=== PATIENT | female | born 1975 | race Caucasian/White ===

== ENCOUNTER → 2020-01-25 08:14 | Outpatient (CLI) | payer OTHER, SELFPAY ==
--- NOTE | ~2020-01-25 | MR_ITS ---
EXAMINATION: MR cervical spine wo/w con EXAM DATE: 01/25/2020 10:37 INDICATION: Multiple sclerosis. TECHNIQUE: Multi-sequential, multiplanar MR images of the cervical spine were obtained without contra st. Axial T2, axial T2 MERGE sequence. Sagittal T1, T2, T2 fat saturation images also obtained. Axi al T1 weighted sequence. Patient was then injected with 18 mL Multihance intravenous contrast and re imaged. Postcontrast axial and sagittal T1-weighted fat saturation sequences were obtained. Compared to exam from 04/15/2007 FINDINGS: Scattered small vague regions of increased cervical spinal cord T2 signal again noted, the largest 2 demonstrating slight volume loss at these locations. This is consistent with sequela from prior episodes of multiple sclerosis. No enhancing lesions, no evidence of active disease. There is m ild cervical arthropathy. No central canal or neural foraminal stenosis. Some artifact from dental ureña rdware. There are no suspicious marrow signal abnormalities. Paraspinal soft tissue is unremarkable. There is no significant interval change. IMPRESSION: 1. Scattered cervical spinal cord signal abnormalities consistent with quiescent multiple sclerosis, unchanged. 2. Mild cervical arthropathy. Reviewed, dictated and finalized at location B. 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 Scattered cervical spinal cord signal abnormalities consistent with quiesce nt multiple sclerosis, unchanged. 2. Mild cervical arthropathy.
--- NOTE | ~2020-01-25 | MR_ITS ---
EXAMINATION: MR thoracic spine wo/w con EXAM DATE: 01/25/2020 10:32 INDICATION: Multiple sclerosis. TECHNIQUE: Multi-sequential, multiplanar MR images of the thoracic spine were obtained without contra st. Sagittal T1, T2, T2 fat saturation, axial T2 weighted images reviewed. Axial T1 weighted sequenc e. Patient was then injected with 18 mL Multihance intravenous contrast and reimaged. Postcontrast axial and sagittal T1-weighted fat saturation sequences were obtained. Comparison is made to prior ex amination from 04/15/2017. FINDINGS: There are no areas of abnormal enhancement on the post contrast images. Small focus of slig htly increased cord T2 signal intensity in the right side at the T5 level, and similar vague region i dentified lower down left side at the 11-12 level, probably sequela from prior episodes of multiple s clerosis. No significant change compared to prior study. Mild thoracic spondylosis without stenosis of the central canal or neural foramen. Number than mild t horacic facet arthropathy. The vertebral bodies are aligned in the AP dimension. Small T6 hemangioma. The vertebral body marrow is otherwise normal in signal intensity. Paraspinal soft tissue is unremar kable. IMPRESSION: 1. 2 vague small thoracic cord signal abnormalities consistent with quiescent multiple sclerosis. No active disease. 2. Mild thoracic spondylosis without stenosis. Reviewed, dictated and finalized at location B. ING MACHINE TENDER
--- NOTE | ~2020-01-25 | MR_ITS ---
EXAMINATION: MR brain/brain stem wo/w con DATE: 01/25/2020 10:49 INDICATION: Multiple sclerosis. TECHNIQUE: Magnetic resonance imaging (MRI) of the brain and brainstem was performed without and with 18 mL MultiHance intravenous contrast. Sequences included sagittal and axial T1-weighted FLAIR, axia l T1-weighted FSE, axial diffusion-weighted FS EPI, sagittal T2-weighted FLAIR, axial T2*-weighted GR E, axial T2-weighted FLAIR Propeller, and axial T2-weighted Propeller. Postcontrast sequences include d axial, coronal, and sagittal T1-weighted FSE. Apparent diffusion coefficient (ADC) maps were create d. COMPARISON: Brain MRI 05/15/18 FINDINGS: Artifact from the patient's mouth obscures the anteroinferior aspect of the brain on some s equences. There are greater than 40 lesions of increased T2-weighted signal intensity in the white ma tter with a periventricular predominance. Many of the lesions are confluent. Many of the lesions are juxtacortical. There are infratentorial lesions involving the right middle cerebellar peduncle and le ft side of medulla and osmin. None of the lesions enhance. There is no acute ischemic infarct or intra cranial hemorrhage. The ventricles are normal in size. The orbits are normal. The mastoid air cells a re normal. IMPRESSION: 1. Unchanged number and distribution of brain lesions, consistent with multiple sclerosis. Reviewed, dictated and finalized at location A. UELS PLANT CONSTRUCTION WORKER
[2020-01-25 08:45] LABS: Estimated Glomerular Filt Rate > 60
== END ==
DX: G35 Multiple sclerosis (principal); M47.894 Other spondylosis, thoracic region
CPT/HCPCS: 70553; 72156; 72157; A9577

== ENCOUNTER → 2020-11-06 10:10 | Outpatient (CLI) | payer OTHER, SELFPAY ==
--- NOTE | ~2020-11-06 | MM_ITS ---
EXAMINATION: MM screening giselle BI w demetrius HISTORY: Screening mammogram TECHNIQUE: Craniocaudal and mediolateral oblique 3-D tomosynthesis images were obtained and synthetic 2-D images were generated. CAD analysis was submitted and interpreted. COMPARISON: No prior mammogram is available for comparison at this institution. BREAST PARENCHYMAL COMPOSITION: There are scattered areas of fibroglandular density. FINDINGS: RIGHT BREAST: There is a possible mass in the middle third of the outer breast 8 cm from the nipple. LEFT BREAST: There is no evidence of suspicious mass, calcification, or architectural distortion to s uggest malignancy. IMPRESSION: 1. Possible right breast mass which may represent the patient's baseline however no comparison is cur rently available. 2. Comparison with prior mammograms is necessary. BI-RADS Category 0: Incomplete: Needs comparison with prior mammograms. Reviewed, dictated and finalized at location A. IMPRESSION: 1. Possible right breast mass which may represent the patient's baseline howeve r no comparison is currently available. 2. Comparison with prior mammograms is necessary. BI-RADS Category 0: Incomplete: Needs comparison with prior mammograms.
== END ==
PROVIDERS: PCP Internal Medicine; Visit Provider Obstetrics & Gynecology
DX: Z12.31 Encounter for screening mammogram for malignant neoplasm of breast (principal); R92.8 Other abnormal and inconclusive findings on diagnostic imaging of breast
CPT/HCPCS: 77063; 77067

== ENCOUNTER → 2021-01-26 07:44 | Outpatient (CLI) | payer OTHER, SELFPAY ==
--- NOTE | ~2021-01-26 | MMUS_ITS ---
EXAMINATION: MM diagnostic giselle RT w demetrius, US breast RT limited HISTORY: Possible right breast mass on screening mammogram TECHNIQUE: Additional 3-D tomosynthesis images of the right breast were performed and synthetic 2-D i mages were generated. CAD analysis was submitted and interpreted. High resolution limited right breas t ultrasound was performed. COMPARISON: 11/06/2020, 10/17/2019, 07/25/2018 BREAST PARENCHYMAL COMPOSITION: There are scattered areas of fibroglandular density. FINDINGS: MAMMOGRAPHIC FINDINGS: There is a 5 mm oval, obscured, equal density mass in the middle third of the outer breast at 9:00 lo cation 8 cm from the nipple. ULTRASOUND: There is a 5 mm cyst at the 9:00 location 7 cm from the nipple corresponding to the mammographic find ing in question. In addition, a 2 mm cyst is noted at the 8:00 location 3 cm from the nipple. IMPRESSION: 1. No mammographic or sonographic evidence of malignancy. 2. Recommend routine screening mammography in one year. BI-RADS Category 2: Benign finding(s). Reviewed, dictated and finalized at location A. L ROLLING MACHINE OPERATOR IMPRESSION: 1. No mammographic or sonographic evidence of malignancy. 2. Recommend routine screening mammography in one year. BI-RADS Category 2: Benign finding(s).
== END ==
PROVIDERS: PCP Internal Medicine
DX: N60.01 Solitary cyst of right breast (principal)
CPT/HCPCS: 76642; 77061; 77065; G0279

== ENCOUNTER 2021-04-01 08:25 | Outpatient (RCR) | payer OTHER, SELFPAY ==
[2021-04-01 11:05] VITALS: BP 123/75; PULSE 76; RESP 20; TEMP 35.9; O2SAT 98
[2021-04-01] MEDS: diphenhydrAMINE HCl CAP 25 MG CAPSULE PO (11:10)
[2021-04-01] MEDS: ACETAMINOPHEN 325 MG TABLET 650 MG PO (11:10)
[2021-04-01] MEDS: FAMOTIDINE 20 MG TABLET PO (11:11)
[2021-04-01 12:41] VITALS: BP 128/72; PULSE 66; O2SAT 100
== END 2021-04-01 17:00 ==
LOC: AMCINF 08:25
PROVIDERS: PCP Internal Medicine; Visit Provider Internal Medicine Hematology & Oncology
DX: U07.1 COVID-19 (principal); G35 Multiple sclerosis
CPT/HCPCS: A9270; M0247; Q0247

== ENCOUNTER 2021-05-04 00:43 | Day surgery (SDC) | payer OTHER, SELFPAY ==
[2021-04-24 13:32] VITALS: BMI 28.7
--- NOTE | 2021-04-24 13:44 | PC.NURSE ---
Report to the Outpatient Waiting Room, entrance under the green pavilion located off [facility], at time 0600 on date 05/04/21. OR Time: 0730. - You will be asked a series of questions to screen for COVID 19 for your protection. - A mask is required within the hospital. - No visitors are allowed at this time. Preoperative COVID Testing Requirements: No COVID Test needed if: (proof is required; if not received patient will have Rapid Test prior to entry) - Patient has received COVID Vaccine at least 14 days prior to procedure date or - Patient has positive COVID test result within last 90 days of surgery date. COVID Test needed if above criteria is not met Patients may have clear liquids (water, carbonated beverages, clear teas, apple juice) until 3 hours prior to surgery with a maximum of 20 ounces. - No food from midnight until time of surgery Take the following medications with a SIP of water the morning of surgery: ALPRAZOLAM (IF NEEDED) Medications to discontinue per physician: VITAMINS/SUPPLEMENTS Date to take last dose: 04/30/21 Please no make-up, nail comoran, hairspray, perfume, deodorant, or body powder the day of surgery. No jewelry (including any body piercings) or valuables the day of surgery, leave them at home. Please take a shower or bath the night before, or the morning of, surgery with an antibacterial soap. Wear comfortable, loose fitting clothing. - Jewelry must be removed prior to entering the operating room. Rings and piercings that are not removed may be cut off. - The hospital will not accept responsibility for valuables. - Please leave all valuables, including medications, at home the day of surgery. If you are going home after surgery, a licensed driver's license examiner must drive you home. - NO public transportation without another adult. - We recommend that an adult stay with you for 24 hours following discharge. - We also recommend that you do not drive, make important decision, drink alcoholic beverages, or take any drugs that were not prescribed by your health care provider for at least 24 hours after your discharge time. Follow any additional instructions given to you from your surgeon. Telephone instructions given to DAVID GARCIA and asked if any additional questions and then verbalized understanding. Patient advised to call surgeon office or pre surgery nurse liaison [phone] if any additional questions.
--- NOTE | 2021-05-03 22:51 | PM.IMHP ---
H&P: HPI History of Present Illness Date/Time: 05/03/21 22:51 Chief Complaint: RT wrist an hand pain Narrative: 45 yo woman with right carpal tunnel syndrome. Failed conservative treatment now presents for surgical treatment. Review of Systems Constitutional: Constitutional: Denies fever(s) Eyes: Eyes: Denies blurry vision ENT: Reports Normal hearing present Cardiovascular: Cardiovascular: Denies chest pain and Denies dyspnea Respiratory: Respiratory: Denies dyspnea and Denies wheezing Gastrointestinal: Gastrointestinal: Denies abdominal pain Genitourinary: Genitourinary: Denies urinary urgency Musculoskeletal: Musculoskeletal: Reports as per HPI and Denies numbness Integumentary/Breasts: Skin/Breast: Denies changing lesions and Denies sores Neurologic: Reports Normal hearing present, Denies behavioral changes, Denies confusion, Denies numbness and Denies convulsions Psychiatric: Psychiatric: Denies behavioral changes, Denies confusion and Denies hallucinations Endocrine: Endocrine: Denies heat intolerance Hematologic/Lymphatic: Hematologic/Lymphatic: Denies easy bleeding Allergic/Immunologic: Allergic/Immunologic: Denies wheezing PMFSH Past Medical History Medical History Degenerative joint disease of knee Effusion, left knee Left carpal tunnel syndrome Left knee DJD Left knee pain Multiple sclerosis Dx in 2014 per patient questionnaire Osteoarthritis of right knee Other fatigue Right carpal tunnel syndrome Seasonal allergies Vitamin D deficiency, unspecified Family History Family History Father Hypertension Other Arthritis Cerebrovascular accident Diabetes mellitus Family history of arthritis Family history of cardiovascular disease Heart disease Social History Social History Smoking status: Never smoker Second hand tobacco smoke exposure: No Alcohol intake: current Drinks per week: 8 Alcohol use details: social Substance use: current Substance use type: marijuana Additional living arrangements comments: SONS Spiritual care concerns: No Meds Home Medications and Allergies Home Medications Medication Instructions Recorded Confirmed Type levonorgestrel 20 mcg/24 hours (7 1 device I-UTERINE ONCE 10/09/19 04/29/21 History yrs) 52 mg intrauterine device lorazepam 2 mg tablet 2 mg PO DAILY PRN 01/08/20 04/29/21 History multivitamin 1 tablet PO DAILY 04/24/21 04/29/21 History fluconazole 150 mg tablet 150 mg PO Q72H #3 tablet 04/27/21 04/27/21 Rx fluconazole 150 mg tablet 150 mg PO Q72H #2 tablet 04/29/21 04/29/21 Rx Allergies Allergy/AdvReac Type Severity Reaction Status Date / Time No Known Allergies Verified 04/29/21 16:08 Exam Const: General: cooperative, healthy appearing, no acute distress, well developed and alert; No confusion Orientation/consciousness: No confusion HENMT: Head: normal to inspection, normocephalic and atraumatic Eyes: Conjunctivae: conjunctivae normal Sclera: sclerae normal Neck: Neck: supple and nontender Chest: Chest palpation & inspection: normal inspection of the chest Resp: Effort & Inspection: normal respiratory effort and no audible wheezes Cardio: Rate: regular rate Rhythm: regular rhythm : General: Yes deferred Skin: General skin exam: no rashes or lesions noted Neuro: General: No confusion Motor exam (neuro): Normal motor muscle tone present throughout Sensory Exam: Sensory deficit (Neuro) (decreased sensation to light touch thumb, index, middle and radial ring john) and Upper extremity sensory exam abnormal Deep tendon reflexes (DTR's): Right triceps reflex intensity grade: 2+, Left triceps reflex intensity grade: 2+, Rt Biceps (C5, C6): 2+, Left biceps reflex intensity grade: 2+, Right brachioradialis reflex intensity grade: 2+ and L
[2021-05-04 06:45] VITALS: BP 93/66; PULSE 62; RESP 20; TEMP 36.4; O2SAT 100
--- NOTE | 2021-05-04 07:04 | WPDANESEPPF ---
Anes - Initial Pre Proc Eval Procedure: Operation Date: 05/04/21 07:30 Proposed Procedures p Right Carpal Tunnel Release - Efrain Peraza MD Date/Time: 05/04/21 07:04 Surgeon: Efrain Peraza MD Pre Op Diagnosis: Rt Carpal Tunnel Syndrome Patient Data Age: 45 Gender: F Height: 1.78 m Weight: 90.72 kg Allergies Allergy/AdvReac Type Severity Reaction Status Date / Time No Known Allergies Verified 05/04/21 06:41 Home Medications Medication Instructions Recorded Confirmed Type levonorgestrel 20 mcg/24 hours (7 1 device I-UTERINE ONCE 10/09/19 04/29/21 History yrs) 52 mg intrauterine device lorazepam 2 mg tablet 2 mg PO DAILY PRN 01/08/20 05/04/21 History multivitamin 1 tablet PO DAILY 04/24/21 05/04/21 History fluconazole 150 mg tablet 150 mg PO Q72H #2 tablet 04/29/21 05/04/21 Rx Patient hx anesthesia problems: none Family hx anesthesia problems: none Results Review: All pre-operative results and documents have been reviewed as part of the pre-operative evaluation. [facility] Past Medical History Medical History Degenerative joint disease of knee Effusion, left knee Left carpal tunnel syndrome Left knee DJD Left knee pain Multiple sclerosis Dx in 2014 per patient questionnaire Osteoarthritis of right knee Other fatigue Right carpal tunnel syndrome Seasonal allergies Vitamin D deficiency, unspecified Family History Family History Father Hypertension Other Arthritis Cerebrovascular accident Diabetes mellitus Family history of arthritis Family history of cardiovascular disease Heart disease Social History Social History Smoking status: Never smoker Second hand tobacco smoke exposure: No Alcohol intake: current Drinks per week: 5 Alcohol use details: social Substance use: never Substance use type: marijuana Living arrangements: with family Additional living arrangements comments: SONS Spiritual care concerns: No Anes - Eval Final PreProcedure Day of Procedure 05/04/21 07:04 Patient weight: overweight Heart: regular rate and rhythm Lungs: clear to auscultation Airway: Mallampati scale class II Neurological: alert and oriented Last oral intake: >/= 8 hours ASA classification: III Emergent: no Anesthetic plan: proceed Anesthesia type and monitoring: general GIVS and standard monitoring Results Review: All pre-operative results and documents have been reviewed as part of the pre-operative evaluation. Informed Consent: The patient's anesthetic plan and its attendant risks and benefits were discussed with the patient/family/POA. Questions were solicited and answers provided to the satisfaction of the patient/family/POA.
[2021-05-04] MEDS: LACTATED RINGERS 1,000 ML 30 ML IV CONT (07:15)
--- NOTE | 2021-05-04 07:16 | WPDHPUPDATE1 ---
History and Physical Update Update Date/Time: 05/04/21 07:16 History and Physical has been reviewed, including an updated exam of the patient. There are NO changes in the patient's condition. Risks, benefits, and alternatives have been discussed and questions answered. Patient agrees to proceed with procedure.
[2021-05-04] MEDS: ACETAMINOPHEN 500 MG TABLET 1000 MG PO (07:20)
[2021-05-04] MEDS: KETOROLAC 15 MG/ML VIAL (*BKC) IV PUSH (07:20)
[2021-05-04] MEDS: ceFAZolin 2 GM/D5W 50 ML 2 GM/50 ML BAG IVPB (07:29)
[2021-05-04] MEDS: BUPIVACAINE/EPINEPHRINE 0.5% 30 ML VIAL 8.5 ML INFILTRATE (07:40)
[2021-05-04] MEDS: LIDOCAINE HCL 2% LOCAL INJ 20 ML VIAL INFILTRATE (07:40)
[2021-05-04 08:05] VITALS: BP 117/71; PULSE 68; RESP 12; O2SAT 96
--- NOTE | 2021-05-04 08:07 | W.PM.PROC2 ---
Procedure Note - Detailed Date of Procedure 05/04/21 Pre-op Diagnosis Rt Carpal Tunnel Syndrome G56.01 Post-op Diagnosis same Procedure Performed Right open carpal tunnel release ([id number]) Surgeon Efrain Peraza MD Exercise Science Internship therapist's assistant Anesthesia MAC Indications The patient has history, exam findings, and electrodiagnostic findings consistent with carpal tunnel syndrome. Conservative treatment with bracing/ splinting, activity modifications, medication, ergonomics, injections has failed. Symptoms are daily and affect ability to use hand. The patient desires operative treatment. Description of Procedure After informed consent was given, the operative extremity was marked in the preoperative holding area. Intravenous antibiotics were given. The patient was taken to the operating room and underwent conscious sedation by the anesthesia team. A time-out was performed confirming patient, procedure, and operative site. Local infiltrate at the carpal tunnel was done with 0.5% marcaine. Prepping and draping was done using chloraprep skin solution with usual surgical sterile technique. Anatomic landmarks marked on skin. Hand was exsanguinated and arm tourniquet inflated to 225mmHg. Incision was made with #15 blade knife in skin crease on volar palm. Hemostasis was achieved with electrocautery. Careful dissection was carried down to the transverse carpal ligament. Retractors were placed. Ligament overlying median nerve was incised in line with skin incision using bever blade. Proximal and distal release was done with metzenbaum scissors under direct visualization. Mosquito clamp was placed deep to ligament to protect nerve during release. The nerve was inspected and noted to be intact with mild flattening. Tendons had good excursion. The tourniquet was then released and pressure held. Bleeding points were coagulated with bipolar cautery. The wound was thoroughly irrigated with antibiotic solution. The skin was closed with 4-0 nylon interrupted suture. A sterile dressing was applied. Good capillary refill in the fingers and thumb was noted. The patient was transported to the recovery room in stable condition. All sponge, needle, instrument counts were correct at the end of the case. Estimated Blood Loss 5 Tourniquet Time 6 Drains No Packing No Pathology none sent Complications None Condition stable Disposition PACU
[2021-05-04 08:35] VITALS: BP 118/77; PULSE 60; RESP 12; O2SAT 100
[2021-05-04 08:55] VITALS: BP 122/77; PULSE 62; RESP 12
== END 2021-05-04 09:05 | disposition home or self-care (01) ==
PROVIDERS: PCP Internal Medicine; Visit Provider Orthopaedic Surgery
PROC: (CPT 64721; principal; 2021-05-04 07:30)
DX: G56.01 Carpal tunnel syndrome, right upper limb (principal); G35 Multiple sclerosis; E55.9 Vitamin D deficiency, unspecified
CPT/HCPCS: 64721; A9270; J0690; J1100; J1885; J2001; J2250; J2704; J3010; J7120

== ENCOUNTER → 2021-07-16 08:47 | Outpatient (CLI) | payer OTHER, SELFPAY ==
--- NOTE | ~2021-07-16 | MR_ITS ---
EXAMINATION: MR cervical spine wo/w con DATE: 07/16/2021 10:33 INDICATION: Multiples sclerosis. TECHNIQUE: Magnetic resonance imaging (MRI) of the cervical spine was performed without and with 18 m L MultiHance intravenous contrast. Sequences included sagittal and axial T2-weighted FSE, sagittal T2 -weighted FS FSE, and sagittal and axial T1-weighted FSE. Postcontrast sequences included sagittal an d axial T1-weighted FS FSE. COMPARISON: Cervical spine MRI 01/25/2020 FINDINGS: Bone alignment is normal. Vertebral body heights and intervertebral disc heights are normal . There are multiple ill-defined lesions of increased T2-weighted signal intensity in the cervical sp inal cord. No abnormal contrast enhancement. The following disc levels are specifically discussed: C2-C3: The disc does not extend beyond the endplate margin. There is no uncovertebral joint osteoarth ritis. There is mild right and moderate left facet joint osteoarthritis. There is no neural foraminal stenosis. There is no central canal stenosis. C3-C4: The disc does not extend beyond the endplate margin. There is mild left uncovertebral joint os teoarthritis. There is mild bilateral facet joint osteoarthritis. There is no neural foraminal stenos is. There is no central canal stenosis. C4-C5: The disc does not extend beyond the endplate margin. There is no uncovertebral joint osteoarth ritis. There is moderate bilateral facet joint osteoarthritis. There is no neural foraminal stenosis. There is no central canal stenosis. C5-C6: The disc does not extend beyond the endplate margin. There is no uncovertebral joint osteoarth ritis. There is mild right facet joint osteoarthritis. There is no neural foraminal stenosis. There i s no central canal stenosis. C6-C7: The disc does not extend beyond the endplate margin. There is no uncovertebral joint osteoarth ritis. There is mild bilateral facet joint osteoarthritis. There is no neural foraminal stenosis. The re is no central canal stenosis. C7-T1: The disc does not extend beyond the endplate margin. There is no uncovertebral joint osteoarth ritis. There is mild bilateral facet joint osteoarthritis. There is no neural foraminal stenosis. The re is no central canal stenosis. IMPRESSION: 1. Stable number and distribution of spinal cord lesions, consistent with multiple sclerosis. 2. Mild cervical spondylosis. Reviewed, dictated and finalized at location A. IMPRESSION: 1. Stable number and distribution of spinal cord lesions, consistent with multi ple sclerosis. 2. Mild cervical spondylosis.
--- NOTE | ~2021-07-16 | MR_ITS ---
EXAMINATION: MR brain/brain stem wo/w con DATE: 07/16/2021 10:32 INDICATION: Multiple sclerosis. High risk medication use. TECHNIQUE: Magnetic resonance imaging (MRI) of the brain and brainstem was performed without and with 18 mL MultiHance intravenous contrast. COMPARISON: Brain MRI 01/25/2020 FINDINGS: There are greater than 40 total lesions of increased T2-weighted signal intensity in the br ain, many of which are confluent. Of these lesions, many are periventricular and several are juxtacor tical. There is infratentorial lesions involving the right middle cerebellar peduncle and left side o f the medulla and osmin. None of the lesions enhance. There is no acute ischemic infarct or intracrani al hemorrhage. The ventricles are normal in size. The paranasal sinuses are clear. The orbits are nor mal. The mastoid air cells are normal. IMPRESSION: 1. Stable number and distribution of brain lesions, consistent with multiple sclerosis. Reviewed, dictated and finalized at location A. IMPRESSION: 1. Stable number and distribution of brain lesions, consistent with multiple sc lerosis.
--- NOTE | ~2021-07-16 | MR_ITS ---
EXAMINATION: MR thoracic spine wo/w con DATE: 07/16/2021 10:33 INDICATION: Multiple sclerosis. High risk medication use. TECHNIQUE: Magnetic resonance imaging (MRI) of the thoracic spine was performed without and with 18 m L MultiHance intravenous contrast. Sequences included sagittal and axial T2-weighted FSE, sagittal T2 -weighted FS FSE, and sagittal and axial T1-weighted FSE. Postcontrast sequences included sagittal an d axial T1-weighted FS FSE. COMPARISON: Thoracic spine MRI 01/25/2020 FINDINGS: Bone alignment is normal. There is mild chronic anterior wedging of T10 and T11 vertebral b odies. Intervertebral disc heights are normal. There is multilevel facet joint osteoarthritis. On the left, there is mild neural foraminal stenosis at T8-T9 and T9-T10. At T9-T10, there is a right centr al protrusion with mild central canal stenosis. There are ill-defined lesions of increased T2-weighte d signal intensity in the spinal cord at T1, T5, T9, and T11. No abnormal contrast enhancement. The c onus medullaris is at L1. IMPRESSION: 1. Stable spinal cord lesions, consistent with multiple sclerosis. 2. Mild thoracic spondylosis. Reviewed, dictated and finalized at location A.
[2021-07-16 09:10] LABS: Estimated Glomerular Filt Rate > 60
== END ==
PROVIDERS: PCP Internal Medicine
DX: G35 Multiple sclerosis (principal); Z79.899 Other long term (current) drug therapy; R93.89 Abnormal findings on diagnostic imaging of other specified body structures; D84.821 Immunodeficiency due to drugs; E55.9 Vitamin D deficiency, unspecified; F41.8 Other specified anxiety disorders; M47.894 Other spondylosis, thoracic region; M47.892 Other spondylosis, cervical region
CPT/HCPCS: 70553; 72156; 72157; A9577

== ENCOUNTER → 2021-12-24 13:46 | Outpatient (CLI) | payer OTHER, SELFPAY ==
--- NOTE | ~2021-12-24 | MM_ITS ---
EXAMINATION: MM screening [facility] BI w demetrius HISTORY: Screening TECHNIQUE: Craniocaudal and mediolateral oblique 3-D tomosynthesis images were obtained and synthetic 2-D images were generated. CAD analysis was submitted and interpreted. COMPARISON: Comparison to multiple prior studies sequentially, with oldest reviewed study dated 07/25. BREAST PARENCHYMAL COMPOSITION: There are scattered areas of fibroglandular density. FINDINGS: There is no evidence of suspicious mass, calcification, or architectural distortion to sugg est malignancy in either breast. There has been no suspicious interval change. IMPRESSION: 1. No mammographic evidence of malignancy. 2. Recommend routine screening mammography in one year. BI-RADS Category 1: Negative Reviewed, dictated and finalized at location A.
== END ==
PROVIDERS: PCP Internal Medicine; Visit Provider Obstetrics & Gynecology
DX: Z12.31 Encounter for screening mammogram for malignant neoplasm of breast (principal)
CPT/HCPCS: 77063; 77067

== ENCOUNTER 2022-07-22 12:34 | Outpatient (CLI) | payer OTHER, SELFPAY ==
--- NOTE | ~2022-07-22 | XR_ITS ---
EXAMINATION: XR knee LT min 4V DATE: 07/22/2022 12:51 INDICATION: Left knee pain. TECHNIQUE: 4 views of left knee were obtained. COMPARISON: Left knee radiographs 09/15/21 FINDINGS: There is lateral subluxation of patella. No fracture. Again seen is a 2 cm sclerotic lesion in distal femoral metaphysis in a pattern of chondroid matrix, likely an enchondroma. There is sever e osteoarthritis of patellofemoral compartment and mild osteoarthritis of medial and lateral compartm ents. No knee joint effusion. IMPRESSION: 1. Severe left knee osteoarthritis. Reviewed, dictated and finalized at location E.
== END 2022-07-22 12:35 | disposition home or self-care (01) ==
LOC: ANHIMG 12:38
PROVIDERS: PCP Internal Medicine; Visit Provider Nurse Practitioner Family
DX: M17.12 Unilateral primary osteoarthritis, left knee (principal)
CPT/HCPCS: 73564

== ENCOUNTER → 2022-11-26 10:25 | Outpatient (CLI) | payer OTHER, SELFPAY ==
--- NOTE | ~2022-11-26 | US_ITS ---
US abdomen complete EXAMINATION: US Abdomen Complete INDICATION: Abdomen pain PROCEDURE: Realtime High Resolution abdomen ultrasound. COMPARISON: No prior studies for comparison FINDINGS: Gallbladder within normal limits. No gallstones, pericholecystic fluid, gallbladder wall t hickening or biliary dilatation. Common bile duct measures 5 mm. Liver echotexture is increased, consistent with fatty infiltration. Pancreas within normal limits. Pancreatic tail is obscured by bowel gas. Spleen is unremarkeable. Renal echotexture is within enrrique l limits bilaterally without hydronephrosis, contour deforming mass or renal stone. Right kidney declan ures 11.1 cm. Left kidney measures 12.3 cm. Visualized aspects of the aorta and IVC are within normal limits. Portal vein is patent. No sonograph ic Cook's sign indicated by the technologist. IMPRESSION: 1: Hepatic steatosis. Reviewed, dictated and finalized at location B. IMPRESSION: 1: Hepatic steatosis.
== END ==
PROVIDERS: PCP Internal Medicine; Visit Provider Internal Medicine
DX: R10.11 Right upper quadrant pain (principal); R10.12 Left upper quadrant pain; K76.0 Fatty (change of) liver, not elsewhere classified
CPT/HCPCS: 76700

== ENCOUNTER → 2023-03-18 15:59 | Outpatient (CLI) | payer OTHER, SELFPAY ==
--- NOTE | ~2023-03-18 | MM_ITS ---
EXAMINATION: MM screening [facility] BI w demetrius HISTORY: Screening mammogram TECHNIQUE: Craniocaudal and mediolateral oblique 3-D tomosynthesis images were obtained and synthetic 2-D images were generated. CAD analysis was submitted and interpreted. COMPARISON: 12/24/2021, 01/26/2021, 11/06/2020 BREAST PARENCHYMAL COMPOSITION: There are scattered areas of fibroglandular density. FINDINGS: No suspicious mass, calcification, or architectural distortion are identified in either dianelys ast to suggest malignancy. There has been no suspicious interval change. IMPRESSION: 1. No mammographic evidence of malignancy. 2. Recommend routine screening mammography in one year. BI-RADS Category 1: Negative Reviewed, dictated and finalized at location A. 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
== END ==
PROVIDERS: PCP Obstetrics & Gynecology; Visit Provider Obstetrics & Gynecology
DX: Z12.31 Encounter for screening mammogram for malignant neoplasm of breast (principal)
CPT/HCPCS: 77063; 77067

== ENCOUNTER 2024-01-13 08:56 | Outpatient (CLI) | payer OTHER, SELFPAY ==
--- NOTE | ~2024-01-13 | MR_ITS ---
EXAMINATION: MR brain/brain stem wo/w con DATE: 01/13/2024 09:58 INDICATION: Multiple sclerosis. TECHNIQUE: Magnetic resonance imaging (MRI) of the brain and brainstem was performed without and with 17 mL MultiHance intravenous contrast. COMPARISON: Brain MRI 07/16/2021 FINDINGS: There are greater than 40 lesions of increased T2-weighted signal intensity in the brain, m any of which are confluent. Of these lesions, many are periventricular, cerebral are juxtacortical, a nd a few are infratentorial. None of the lesions enhance. There is no acute ischemic infarct or intra cranial hemorrhage. The ventricles are normal in size. The paranasal sinuses are clear. The orbits ar e normal. The mastoid air cells are normal. IMPRESSION: 1. Stable number and distribution of brain lesions, consistent with multiple sclerosis. Reviewed, dictated and finalized at location B. IMPRESSION: 1. Stable number and distribution of brain lesions, consistent with multiple sc lerosis.
== END 2024-01-13 08:57 | disposition home or self-care (01) ==
DX: G35 Multiple sclerosis (principal); D84.821 Immunodeficiency due to drugs; Z79.899 Other long term (current) drug therapy; R93.89 Abnormal findings on diagnostic imaging of other specified body structures; G93.32 Myalgic encephalomyelitis/chronic fatigue syndrome; R26.9 Unspecified abnormalities of gait and mobility; F41.8 Other specified anxiety disorders; Z86.16 Personal history of COVID-19
CPT/HCPCS: 70553; A9577

== ENCOUNTER 2024-05-15 13:14 | Outpatient (CLI) | payer OTHER, SELFPAY | END 2024-05-15 13:15 | disposition home or self-care (01) | LOC: MICIMG 13:14 | PROVIDERS: PCP Obstetrics & Gynecology; Visit Provider Obstetrics & Gynecology | DX: Z12.31 Encounter for screening mammogram for malignant neoplasm of breast (principal) | CPT/HCPCS: 77063; 77067 ==

== ENCOUNTER 2024-05-25 15:17 | Emergency (ER) | payer OTHER, SELFPAY ==
--- NOTE | ~2024-05-25 | XR_ITS ---
Portable chest x-ray Comparison: None Clinical History: Altered mental status Findings: Lungs are clear, without focal consolidation or pleural effusion. Cardiomediastinal silho uette is unremarkable. Bones and soft tissues are unremarkable. Impression: Normal chest. Reviewed, dictated and finalized at location . Impression: Normal chest.
--- NOTE | ~2024-05-25 | CT_ITS ---
Non-contrast Head CT History: Altered mental status Technique: Axial non-contrast imaging of the brain was performed. Dose reduction technique was used on this scan by utilizing automated exposure control and iterative reconstruction technique. The dose -length product (DLP) was 605.33 mGy-cm. Findings: There is no evidence of intracranial hemorrhage, mass lesion, or acute infarct. Brain par enchyma appears normal. The ventricles and subarachnoid spaces are normal in size. The calvarium ap pears normal. The visualized paranasal sinuses and mastoid air cells are clear. Impression: No significant abnormality seen. Reviewed, dictated and finalized at location . Impression: No significant abnormality seen.
--- OUTSIDE RECORDS SUMMARY | 2024-05-25 15:20 | XMS_ITS | Continuity of Care Document ---
Author Organization [facility] Address [id number] [place] [address] [address] [place] [address] Phone Care Team Providers Care Costuming Supervisor Name Role Phone Hernadez OD, Puma Unavailable Unavailable Advance Directives Directive Yes / No Effective Date File Name No Information Encounters Encounter Description Practice Location Reason(s) For Visit Diagnoses Date Provider Providers Copied on Encounter [facility], [address], [place], [place], [id number], [place] tel:[phone] [facility] No Information Pollo-0 6-200 1 Hernadez OD Puma. [address] , [address], [place], [address], [place]. tel:[phone] Family History Family Member Type Diagnosis Age At Onset No Information Payers Payer name Insurance type Covered green party ID Authoriza tion(s) No Information Social History Type Description Quantity Date Captured Comments Sex Female Smoking Status No Information Chief Complaint And Reason For Visit No Information Reason For Referral Reason For Referral No Information History Of Present Illness Encounter Date Complaint History Of Prese nt Illness No Information Functional Status Date Functional Assessmen t No Information Instructions Date Instruction Additional Infor mation No Information Assessments Type Assessment Date No Information Patient Care Teams Name Effective Dates (start - stop) Status Members No Information
--- NOTE | 2024-05-25 16:10 | PC.NURSE ---
Pt. holding ice bag onto all extremities. Pt. not cooperative in staying still. Pt. also eating ice and throwing cup in family services room. As a result, unable to obtain temperature at this time. Oral temperature during 1st triage assessment today was WNL.
[2024-05-25 16:12] VITALS: BP 132/96; PULSE 80; RESP 22; O2SAT 95
--- NOTE | 2024-05-25 16:45 | PC.NURSE ---
pt c/o discoloring to john feet. This RN palpated pulses in john extremeties and notified Dr. Doyle. No new orders.
[2024-05-25 23:46] VITALS: RESP 15
--- OUTSIDE RECORDS SUMMARY | 2024-05-26 00:03 | XMS_ITS | Continuity of Care Document ---
Author Organization [facility] Address [id number] [place] [address] [address] [place] [address] Phone Care Team Providers Care Dog Beautician Name Role Phone Hernadez OD, Puma Unavailable Unavailable Advance Directives Directive Yes / No Effective Date File Name No Information Encounters Encounter Description Practice Location Reason(s) For Visit Diagnoses Date Provider Providers Copied on Encounter [facility], [address], [place], [place], [id number], [place] tel:[phone] [facility] No Information Pollo-0 6-200 1 Hernadez OD Puma. [address] , [address], [place], [address], [place]. tel:[phone] Family History Family Member Type Diagnosis Age At Onset No Information Payers Payer name Insurance type Covered alliance party ID Authoriza tion(s) No Information Social [...]
--- OUTSIDE RECORDS SUMMARY | 2024-05-26 00:03 | XMS_ITS | Encounter Summary ---
Author Organization [facility] Address [address] [place] [address] Phone Care Team Providers Care Personal Shopper Name Role Phone Angelo Mitchell MD Primary Care Provider [phone] Encounter Details Date Type Department Care Team (Late st Contact Info) Description 05/25/2024 Telephone [facility] Multiple Sclerosis [address] 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 She states that patient and her are currently in the ER. Starting around 1PM today, patient started feeling ill. Started getting shaky alternating from hot to cold. She also reports that she has terrible pain in her legs and feet, and noted that her legs are changing color and turning pale and blue. She says that she is weak all over, but no new worsening focal weakness. No loss of consciousness. No recent illnesses or sick contacts. Was otherwise well yesterday. Mother states that they are in the waiting room in [facility] in [place], [place] but are wondering if they should go elsewhere. I informed them that I recommend she remain in the ER to be evaluated there, particularly evaluating for systemic illness or infection, given symptoms. documented in this encounter Plan of Treatment Not on file documented as of this encounter Visit Diagnoses Not on filedocumented in this encounter Care Teams Personal Shopper Relationship Specialty Start Date End Date Angelo Mitchell MD [address] [facility] [address] [place] [address] PCP - General 07/15/16 documented as of this encounter
--- OUTSIDE RECORDS SUMMARY | 2024-05-26 00:03 | XMS_ITS | Clinical Summary ---
Author Organization [facility] Address [address] [place] [address] Care Team Providers Care Incident Handler Name Role Phone Angelo Mitchell MD Primary Care Provider [phone]- [phone] Allergies No known active allergies Medications multivitamin-C r-rbki-fifeyai s tablet daily. Active levonorgestreL (Mirena) IUD Mirena 20 mcg/24 hours (6 yrs) 52 mg intrauterine device Activ e methylPREDNISo lone sodium succinate (SOLU-medrol) 125 mg injectionIndic ations:infusio n reaction prophylaxis Infuse 2 mL (125 mg total) into a venous catheter every 6 (six) months Please give 125mg of methylPREDNISolone (SOLU-medrol) via IV push over 1-2 minutes, 30 minutes prior to (Ocrelizumab) Ocrevus infusion. 12/02/19 Active acetaminophen (TYLENOL) 325 mg tabletIndicati ons:infusion reaction prophylaxis Take 2 tablets (650 mg total) by mouth every 6 (six) months Please give 650mg of acetaminophen (Tylenol) by mouth, 30 minutes prior to (Ocrelizumab) Ocrevus infusion. 12/02/19 Active diphenhydrAMIN E (BENADRYL) 25 mg capsuleIndicat ions:infusion reaction prophylaxis Take 1 tablet/capsule (25 mg total) by mouth every 6 (six) months Please give 50mg of diphenhydrAMINE (Benadryl) by mouth, 30 minutes prior to (Ocrelizumab) Ocrevus infusion. 09/20/20 22 Active ocrelizumab (Ocrevus) 30 mg/mL solutionIndica tions:multiple sclerosis Infuse 20 mL (600 mg total) into a venous catheter every 6 (six) months Infuse Ocrevus (Ocrelizumab) 600mg in 500mL Normal Saline over 3.5 hours every 6 months. 20 mL 1 11/24/19 23 Active Additional Information Patient taking differently:600 mg intravenous Every 6 months,Infuse Ocrevus (Ocrelizumab) 600mg in 500mL Normal Saline over 3.5 hours every 6 months. EFFECTIVE 12/01/22 RATE INCREASED TO 2.5 HRS. PER ALYSA. SETTINGS FOLLOWS: TAPER 100 ML HR X 25 ML.., 200 ML HR X 50 ML, 250 ML HR X 125 ML, 300 ML HR X 300 ML. PER ZYNO PUMP, Indications: multiple sclerosis, Reported on 08/17/2023 amantadine HCL 100 mg tablet TAKE 2 TABLETS TWICE A DAY (INCREASED DOSE) 180 tablet 7 06/29/19 24 Active diphenhydrAMIN E (BENADRYL) 25 mg capsuleIndicat ions:infusion pre-medication Take 2 tablet/capsule (50 mg total) by mouth every 6 (six) months for 1 dose Take by mouth 30 minutes prior to Ocrelizumab infusion. 11/28/19 24 Active diazePAM (VALIUM) 5 mg tablet Take one tab 30 minutes prior to MRI. Repeat once if needed 3 tablet 01/10/20 24 Active dalfampridine 10 mg tablet extended release 12 hr Take 1 tablet (10 mg total) by mouth every 12 (twelve) hours 60 tablet 5 03/29/19 25 Active escitalopram (LEXAPRO) 20 mg tabletIndicati ons:Multiple sclerosis (HCC),High risk medication use,Abnormal MRI,Vitamin D deficiency,Oth er fatigue,Mixed anxiety and depressive disorder TAKE 1 TABLET DAILY 90 tablet 3 04/10/19 25 Active 0.9 % sodium chloride ([facility] sodium chloride 0.9%) injectionIndic ations:Maintai n Patency of Indwelling Vascular Catheter Infuse 10 mL into a venous catheter as needed for line care 2024 [facility], [facility], or Other Facility Administered Medication Ordered Dose Route Frequency Start Date End Date Status ocrelizumab (OCREVUS) 30 mg/mL injection 600 mgIndications:Multiple sclerosis (HCC) 600 mg IV Every 6 months 03/31/2021 Activ e Active Problems Problem Noted Date Diagnosed Date Abnormality of gait and mobility 09/09/2023 Medication monitoring encounter 03/01/2022 History of COVID-19 03/01/2022 Abnormal MRI 01/22/2019 Vitamin D deficiency 01/22/2019 Mixed anxiety and depressive disorder 01/22/2019 Multiple sclerosis 01/17/2018 High risk medication use 01/17/2018 Immunosuppression due to drug therapy 01/17/2018 Chronic fatigue disorder 01/17/2018 Tearfulness 01/17/2018 Reactive depression 01/17/2018 Insomnia due to medical condition 01/17/2018 Encounters Date Type Department Care Team Description 05/25/2024 Telephone [facility] Multiple Sclerosis [address] [facility] 7th [place] [address] Richmond Villareal MD 05/17/2024 Home Care Visit [address] [place] [address] Giovany Land, MECHELLE SN NON OASIS DISCHARGE 04/26/2024 Documentation [facility] Multiple Sclerosis [address] [place] [phone] Patricia Mo RN 04/25/2024 7:30 AM ROTARY LITHOGRAPHIC PRESS OPERATOR Home Care Visit [address] [place] [address] Giovany Land, MECHELLE SN NON OASIS RECERTIFICATION 04/25/2024 Plan of Care Documentation [address] [place] [address] 04/10/2024 6:52 PM ROTARY LITHOGRAPHIC PRESS OPERATOR - 04/10/2024 11:59 PM ROTARY LITHOGRAPHIC PRESS OPERATOR Hospital Encounter [facility] [address] [place] [address] Discharge Disposition: Discharge to home or self care 03/29/2024 5:21 PM ROTARY LITHOGRAPHIC PRESS OPERATOR - 03/29/2024 11:59 PM ROTARY LITHOGRAPHIC PRESS OPERATOR Hospital Encounter [facility] [address] [place] [address] Discharge Disposition: Discharge to home or self care 03/29/2024 Orders Only [facility] Multiple Sclerosis [address] [place] [address] Jessica Velázquez MD 03/21/2024 Orders Only [facility] Multiple Sclerosis [address] [place] [address] Jessica Velázquez MD High risk medication use (Primary Dx); Immunosuppression due to drug therapy; Multiple sclerosis (HCC) 03/20/2024 2:00 PM ROTARY LITHOGRAPHIC PRESS OPERATOR Office Visit [facility] Multiple Sclerosis [address] [place] [address] 7th [place] [id number] Jessica Velázquez MD Multiple sclerosis (HCC) (Primary Dx); High risk medication use; Immunosuppression due to drug therapy; Chronic fatigue disorder; Medication monitoring encounter; Abnormality of gait and mobility 03/12/2024 Telephone [facility] Scheduling [address] [place] [address] Brielle Blunt from Last 3 Months Immunizations Immunization Administration Dates Next Due Influenza, Quadrivalent, Salma l Culture-based MDCK, Preservative Free, Antibiotic Free, Intramuscular 02/02/2023,12/01/2021,11/22/2018,12/29,12/28/2017 Influenza, Quadrivalent, Spl it, Preservative Free, Intramuscular 12/25/2020,12/06/2019 Influenza, Trivalent, IM (MDV) 12/13/2012 Influenza, Trivalent, Preser vative Free, Intramuscular 12/16/2014 Pfizer SARS-CoV-2 Monovalent Vaccination (12+ Yrs) PURPLE 04/29/2020,04/08/2020 Pfizer Sars-Cov-2 Bivalent V accination (12+ YRS) 12/01/2021 Tdap 12/25/2020 Surgical History Surgery Date Site/Laterality Comments LUMBAR PUNCTURE WO INJECTION, DIAGNOSTIC 01/24/2015 N/A SECTION Medical History Medical History Date Comments Arthritis Autoimmune disease Family History Medical History Relation Name Comments Heart disease Father dad Hypertension Father dad Obesity Father dad Arthritis Maternal Grandmother Alexandra Strange Clotting disorder Mother Debi Hypertension Paternal Grandmother Radha Cancer Sister sister kidney cancer Relation Name Status Comments Father dad Maternal Grandmother Alexandra Strange Mother Debi Paternal Grandmother Radha Sister sister kidney cancer Social History Tobacco Use Types Packs/Day Years Used Date Smoking Tobacco: Never Cigarettes Smokeless Tobacco: Never Tobacco Cessation:Counseling Given: Not Answered OASIS [id number]: Social Isolation Answer Da te Recorded Frequency of experiencing loneliness or isolatio n Never 04/25/2024 Comments Unknown Sex and Gender Information Value Date Recorded Sex Assigned at Not on file Legal Sex Female 4:17 AM ROTARY LITHOGRAPHIC PRESS OPERATOR Gender Identity Female 07/30/2019 11:16 AM CDT Sexual Orientation Straight 07/30/2019 11 :16 AM CDT Obstetrics History Last Filed Vital Signs Vital Sign Reading Time Taken Comments Blood Pressure 143/82 03/20/2024 1:32 PM ROTARY LITHOGRAPHIC PRESS OPERATOR Pulse 88 03/20/2024 1:32 PM ROTARY LITHOGRAPHIC PRESS OPERATOR Temperature 36.5 C (97.7 F) 11/28/2023 12:00 PM CDT Respiratory Rate 16 11/28/2023 12:00 PM CDT Oxygen Saturation 99% 12/06/2023 10:03 AM CDT Inhaled Oxygen Concentration - - Weight 81.7 kg (180 lb 3.2 oz) 03/20/2024 1:32 P M ROTARY LITHOGRAPHIC PRESS OPERATOR Height 172.7 cm (5' 8 ) 03/20/2024 1:32 PM ROTARY LITHOGRAPHIC PRESS OPERATOR Body Mass Index 27.4 03/20/2024 1:32 PM ROTARY LITHOGRAPHIC PRESS OPERATOR Plan of Treatment Health Maintenance Due Date Last Done Comments Cervical Cancer Screening 1975 Colon Cancer Screening-Colonoscopy 1975 Depression Screening 1975 Hepatitis B Screening 08/25/1993 Regular Well Visit/Exam 18-64 08/25/1993 Pneumococcal vaccine <65 (1 of 2 - PCV) 08/25/1994 Zoster Vaccine (1 of 2) 08/25/1994 Breast Cancer Screening-Mammogram 10/16/2020 10/17/2019, 07/25/2018, 05/31/2017, Additional history exists Covid-19 Vaccine (2023-2 5 season) 2023 02/02/2023, 12/01/2021, 11/06/2020, Additional history exists Influenza Vaccine (#1) 2023 3, 12/01/2021, 12/25/2020, Additional history exists DTaP/Tdap/Td Vaccine (2 - Td or Tdap) 12/25/2030 12/25/2020 Hepatitis C Screening Completed 07/22/2016 Procedures Procedure Name Priority Date/Time Associated Diagnosis Comments T + B-LYMPHOCYTE DIFFERENTIAL Routine 04/12/2024 11:20 AM ROTARY LITHOGRAPHIC PRESS OPERATOR High risk medication use Immunosuppression due to drug therapy Multiple sclerosis (HCC) COMPREHENSIVE METABOLIC PANEL Routine 04/12/2024 11:20 AM ROTARY LITHOGRAPHIC PRESS OPERATOR High risk medication use Immunosuppression due to drug therapy Multiple sclerosis (HCC) IGM Routine 04/12/2024 11:20 AM ROTARY LITHOGRAPHIC PRESS OPERATOR High risk medication use Immunosuppression due to drug therapy Multiple sclerosis (HCC) IGG Routine 04/12/2024 11:20 AM ROTARY LITHOGRAPHIC PRESS OPERATOR High risk medication use Immunosuppression due to drug therapy Multiple sclerosis (HCC) IGA Routine 04/12/2024 11:20 AM ROTARY LITHOGRAPHIC PRESS OPERATOR High risk medication use Immunosuppression due to drug therapy Multiple sclerosis (HCC) NEURO MR OUTSIDE REFERENCE Routine 04/10/2024 6:52 PM ROTARY LITHOGRAPHIC PRESS OPERATOR NEURO MR OUTSIDE REFERENCE Routine 03/29/2024 5:21 PM ROTARY LITHOGRAPHIC PRESS OPERATOR SCREENING MAMMOGRAM BILATERAL [facility] [place] Schedule Routine, Read Routine (OP Routine) 10/17/2019 9:34 AM CDT Encounter for screening mammogram for malignant neoplasm of breast HEPATITIS C ANTIBODY Routine Gen Lab 07/22/2016 3:40 PM CDT from Last 3 Months or Most Recently Relevant to Health Maintenance Results * (ABNORMAL) T + B-Lymphocyte Differential (04/12/2024 11:20 AM ROTARY LITHOGRAPHIC PRESS OPERATOR) Abs.CD19+ Lymphs 6(L) 12 - 645 /uL [facility] - 01 Absolute CD 3 1,226 622 - 2,402 /uL [facility] - 01 CD4 cells 746 359 - 1,519 /uL [facility] - 01 Abs. CD 8 Suppressor 516 109 - 897 /uL [facility] - 01 % CD19+ Lymphs 0.4(L) 3.3 - 25.4 % [facility] - 01 % CD 3 Pos. Lymph. 81.7 57.5 - 86.2 % [facility] - 01 CD4 % 49.7 30.8 - 58.5 % [facility] - 01 % CD 8 Pos. Lymph. 34.4 12.0 - 35.5 % [facility] - 01 CD4/CD8 Ratio 1.44 0.92 - 3.72 [facility] - 01 WBC 4.9 3.4 - 10.8 x10E3/uL [facility] - 01 RBC 3.75(L) 3.77 - 5.28 x10E6/uL [facility] - 01 Hgb 12.2 11.1 - 15.9 g/dL [facility] - 01 Hct 37.8 34.0 - 46.6 % [facility] - 01 MCV 101(H) 79 - 97 fL [facility] - 01 MCH 32.5 26.6 - 33.0 pg [facility] - 01 MCHC 32.3 31.5 - 35.7 g/dL [facility] - 01 Rdw 11.6(L) 11.7 - 15.4 % [facility] - 01 Platelets 271 150 - 450 x10E3/uL [facility] - 01 Neutrophils pct 58 Not Estab. % [facility] - 01 Lymphs pct 31 Not Estab. % [facility] - 01 Monocytes pct 10 Not Estab. % [facility] - 01 Eosinophils pct 1 Not Estab. % [facility] - 01 Basophil pct 0 Not Estab. % [facility] - 01 Neutrophil abs 2.8 1.4 - 7.0 x10E3/uL [facility] - 01 Lymphs (Absolute) 1.5 0.7 - 3.1 x10E3/uL [facility] - 01 Monocyte abs 0.5 0.1 - 0.9 x10E3/uL [facility] - 01 Eosinophils, abs 0.0 0.0 - 0.4 x10E3/uL [facility] - 01 Basophils, abs 0.0 0.0 - 0.2 x10E3/uL [facility] - 01 Immature Granulocytes 0 Not Estab. % [facility] - 01 Immature Grans (Abs) 0.0 0.0 - 0.1 x10E3/uL [facility] - 01 Blood 04/12/2024 11:2 0 AM ROTARY LITHOGRAPHIC PRESS OPERATOR 04/12/2024 Narrative [facility] - 04/16/2024 3:07 PM ROTARY LITHOGRAPHIC PRESS OPERATOR Performed at: [facility] [id number] Recruitment Manager: Jeffrey Mojica PhD, Phone: [phone] Jessica Velázquez MD LAB BLOOD ORDERABLES Final Resul t Performing Organization Address City/[facility]/ZIP Co de Phone Number [facility] - 01 * IgA (04/12/2024 11:20 AM ROTARY LITHOGRAPHIC PRESS OPERATOR) Immunoglobulin A, Qn, Serum 167 87 - 352 mg/dL [facility] - 01 Blood 04/12/2024 11:2 0 AM ROTARY LITHOGRAPHIC PRESS OPERATOR 04/12/2024 Narrative [facility] - 04/14/2024 5:07 AM ROTARY LITHOGRAPHIC PRESS OPERATOR Performed at: [facility] [id number] Recruitment Manager: Jeffrey Mojica PhD, Phone: [phone] Jessica Velázquez MD LAB BLOOD ORDERABLES Final Resul t Performing Organization Address [facility] Co de Phone Number [facility] - 01 * IgM (04/12/2024 11:20 AM ROTARY LITHOGRAPHIC PRESS OPERATOR) Immunoglobulin M, Qn, Serum 31 26 - 217 mg/dL [facility] - 01 Blood 04/12/2024 11:2 0 AM ROTARY LITHOGRAPHIC PRESS OPERATOR 04/12/2024 Narrative [facility] - 04/14/2024 5:07 AM ROTARY LITHOGRAPHIC PRESS OPERATOR Performed at: [facility] [id number] Recruitment Manager: Jeffrey Mojica PhD, Phone: [phone] us Jessica Velázquez MD LAB BLOOD ORDERABLES Final Resul t Performing Organization Address City/[facility]/ZIP Co de Phone Number [facility] - 01 * IgG (04/12/2024 11:20 AM ROTARY LITHOGRAPHIC PRESS OPERATOR) Pathologist [facility] Immunoglobulin G, Qn, Serum 836 586 - 1,602 mg/dL [facility] - 01 Blood 04/12/2024 11:2 0 AM ROTARY LITHOGRAPHIC PRESS OPERATOR 04/12/2024 Narrative [facility] - 04/14/2024 5:07 AM ROTARY LITHOGRAPHIC PRESS OPERATOR Performed at: [address] [id number] Recruitment Manager: Jeffrey Mojica PhD, Phone: [phone] us Jessica Velázquez MD LAB BLOOD ORDERABLES Final Resul t [facility] * (ABNORMAL) Comprehensive metabolic panel (04/12/2024 11:20 AM ROTARY LITHOGRAPHIC PRESS OPERATOR) Pathologist [facility] Glucose 83 70 - 99 mg/dL [facility] - 01 BUN 23 6 - 24 mg/dL [facility] - 01 Creatinine, Serum 0.54(L) 0.57 - 1.00 mg/dL [facility] - 01 eGFR 113 >59 mL/min/1.7 3 [facility] - 01 BUN/creat ratio 43(H) 9 - 23 [facility] - 01 Sodium 139 134 - 144 mmol/L [facility] - 01 Potassium, sr 3.9 3.5 - 5.2 mmol/L [facility] - 01 Chloride 104 96 - 106 mmol/L [facility] - 01 CO2 23 20 - 29 mmol/L [facility] - 01 Calcium 9.0 8.7 - 10.2 mg/dL [facility] - 01 Protein, sr 6.0 6.0 - 8.5 g/dL [facility] - 01 Albumin 4.1 3.9 - 4.9 g/dL [facility] - 01 Globulin, Total 1.9 1.5 - 4.5 g/dL [facility] - 01 Bilirubin, Total 0.3 0.0 - 1.2 mg/dL [facility] - 01 Alk phos 68 44 - 121 IU/L [facility] - 01 AST 14 0 - 40 IU/L [facility] - 01 ALT 7 0 - 32 IU/L [facility] - 01 Blood 04/12/2024 11:2 0 AM ROTARY LITHOGRAPHIC PRESS OPERATOR 04/12/2024 Narrative [facility] - 04/14/2024 12:06 AM ROTARY LITHOGRAPHIC PRESS OPERATOR Performed at: - [facility] [address] [id number] Recruitment Manager: Jeffrey Mojica PhD, Phone: [phone] Jessica Velázquez MD LAB BLOOD ORDERABLES Final Resul t Performing Organization Address City/[facility] Co de Phone Number [facility] - 01 * Neuro MR Outside Reference (04/10/2024 6:52 PM ROTARY LITHOGRAPHIC PRESS OPERATOR) Impressions [facility] - 04/10/2024 6:52 PM ROTARY LITHOGRAPHIC PRESS OPERATOR These images are for Reference purposes only and have not been reviewed by [facility] Radiology. There will be no report generated by a [facility] Radiologist. Narrative [facility] - 04/10/2024 6:52 PM ROTARY LITHOGRAPHIC PRESS OPERATOR EXAMINATION: Images For Reference Purposes Only Jessica Velázquez MD IMG MRI PROCEDURES Final Result Performing Organization Address [facility] Co de Phone Number [email or web address] * Neuro MR Outside Reference (03/29/2024 5:21 PM ROTARY LITHOGRAPHIC PRESS OPERATOR) Impressions [facility] - 03/29/2024 5:21 PM ROTARY LITHOGRAPHIC PRESS OPERATOR These images are for Reference purposes only and have not been reviewed by [facility] Radiology. There will be no report generated by a [facility] Radiologist. Narrative [facility] - 03/29/2024 5:21 PM ROTARY LITHOGRAPHIC PRESS OPERATOR EXAMINATION: Images For Reference Purposes Only Jessica Velázquez MD IMG MRI PROCEDURES Final Result Performing Organization Address [facility] Co de Phone Number [email or web address] * Screening Mammogram Bilateral [place] (10/17/2019 9:34 AM CDT) Anatomical Region Laterality Modality Breast Bilateral Mammography Narrative 10/22/2019 5:33 PM CDT Mammogram Technique: Bilateral Digital Breast Tomosynthesis, Bilateral C-view 2D Screening mammogram. Views obtained: bilateral craniocaudal and bilateral mediolateral oblique. Computer Aided Detection was performed. Mammogram Findings: The present examination has been compared to prior imaging studies performed at [facility] on 05/03/2017, 05/19/2017 and 07/25/2018. There are scattered areas of fibroglandular density. There is no suspicious abnormality in either breast. Impression: Annual screening mammography is recommended. OVERALL FINAL ASSESSMENT: BI-RADS CATEGORY 1: Negative. Procedure Note Megan Payton MD - 10/22/2019 Mammogram Technique: Bilateral Digital Breast Tomosynthesis, Bilateral C-view 2D Screening mammogram. Views obtained: bilateral craniocaudal and bilateral mediolateral oblique. Computer Aided Detection was performed. Mammogram Findings: The present examination has been compared to prior imaging studies performed at [facility] on 05/03/2017, 05/19/2017 and 07/25/2018. There are scattered areas of fibroglandular density. There is no suspicious abnormality in either breast. Impression: Annual screening mammography is recommended. OVERALL FINAL ASSESSMENT: BI-RADS CATEGORY 1: Negative. us Self Screening Mammogram IMG MAMMO PROCEDURES Fi nal Result * Hepatitis C antibody (07/22/2016 3:40 PM CDT) Hep C Ab Nonreactive Nonreactive LAINEY ANDREWS Comment: Interpretive Data Positive results should be confirmed by a molecular method. If positive, a second separately collected sample should be submitted for Hepatitis C Virus (HCV) RNA Detection and Quantitation by Real-Time Reverse Audio Tape Librarian-PCR (RT-PCR). Current interpretive data was last revised on 2016. Blood specimen (specimen) 07/22/2016 3:40 PM CDT 07/22/2016 3:40 PM CDT Jessica Velázquez MD LAB MICROBIOLOGY - GENERAL ORDER CASEY Edited Result - Final LAINEY ANDREWS [facility] [place] [address] from Last 3 Months or Most Recently Relevant to Health Maintenance Insurance [facility] CHOICE PLUS [facility] CHOICE PLUS [facility] CHOICE PLUS Care Teams Incident Handler Relationship Specialty Start Date End Date Angelo Mitchell MD [address] [facility] [address] [place] [address] PCP - General 07/15/16
--- OUTSIDE RECORDS SUMMARY | 2024-05-26 00:03 | XMS_ITS | Referral Summary ---
Author Organization 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 Name Role Phone Angelo Mitchell MD Primary Care Provider [phone] Encounters Date Type Department Care Team Description 05/25/2024 Telephone [facility] Multiple [place] [id number] [facility] Advanced Medicine 7th [place] [id number] Richmond Villareal MD 05/17/2024 Home Care Visit [address] [place] [address] Giovany Land, MECHELLE SN NON OASIS DISCHARGE 04/25/2024 Plan of Care Documentation [address] [place] [address] 04/26/2024 Documentation [facility] Multiple Sclerosis [address] [place] [phone] Patricia Mo RN 04/25/2024 7:30 AM [employer] Home Care Visit [address] [place] [address] Giovany Land, MECHELLE SN NON OASIS RECERTIFICATION 04/10/2024 6:52 PM [employer] - 04/10/2024 11:59 PM [employer] Hospital Encounter [facility] [address] [place] [address] Discharge Disposition: Discharge to home or self care 03/29/2024 5:21 PM [employer] - 03/29/2024 11:59 PM [employer] Hospital Encounter [facility] [address] [place] [address] Discharge Disposition: Discharge to home or self care 03/29/2024 Orders Only [facility] Multiple Sclerosis [address] [place] [address] Jessica Velázquez MD 03/21/2024 Orders Only [facility] Multiple Sclerosis [address] [place] [address] Jessica Velázquez MD High risk medication use (Primary Dx); Immunosuppression due to drug therapy; Multiple sclerosis (HCC) 03/20/2024 2:00 PM [employer] Office Visit [address] [place] [phone] Jessica Velázquez MD Multiple sclerosis (HCC) (Primary Dx); High risk medication use; Immunosuppression due to drug therapy; Chronic fatigue disorder; Medication monitoring encounter; Abnormality of gait and mobility 03/12/2024 Telephone [facility] Scheduling [address] [place] [address] Brielle Blunt from Last 3 Months Allergies No known active allergies Medications multivitamin-C r-yzdp-cvafdwu s tablet daily. Active levonorgestreL (Mirena) IUD [...] minutes prior to (Ocrelizumab) Ocrevus infusion. 12/02/19 22 Active acetaminophen (TYLENOL) 325 mg tabletIndicati ons:infusion [...] prior to (Ocrelizumab) Ocrevus infusion. 12/02/19 Active ocrelizumab (Ocrevus) 30 mg/mL solutionIndica tions:multiple sclerosis Infuse 20 mL (600 mg total) into a venous catheter every 6 (six) months Infuse Ocrevus (Ocrelizumab) 600mg in 500mL Normal Saline over 3.5 hours every 6 months. 20 mL 1 11/24/19 Active Additional Information Patient taking differently:600 mg [...] 04/10/19 25 Active 0.9 % sodium chloride (INV-BJ sodium chloride 0.9%) injectionIndic ations:Maintai n Patency of Indwelling Vascular Catheter Infuse 10 mL into a venous catheter as needed for line care 2024 Discgregoryi magdalena[facility], Clinic, or Other Facility Administered Medication [...] 01/17/2018 Insomnia due to medical condition 01/17/2018 Immunizations Immunization Administration Dates Next Due Influenza, Quadrivalent, Salma l Culture-based MDCK, Preservative Free, Antibiotic Free, Intramuscular 02/02/2023,12/01/2021,11/22/2018,12/29,12/28/2017 Influenza, Quadrivalent, Spl it, Preservative Free, Intramuscular 12/25/2020,12/06/2019 Influenza, Trivalent, IM (MDV) 12/13/2012 Influenza, Trivalent, Preser vative Free, Intramuscular 12/16/2014 Pfizer SARS-CoV-2 Monovalent Vaccination (12+ Yrs) PURPLE 04/29/2020,04/08/2020 Pfizer Sars-Cov-2 Bivalent V accination (12+ YRS) 12/01/2021 Tdap 12/25/2020 Social History Tobacco Use Types Packs/Day Years Used Date Smoking Tobacco: Never Cigarettes Smokeless Tobacco: Never Tobacco Cessation:Counseling Given: Not Answered OASIS D0700: Social Isolation Answer Da te Recorded Frequency of experiencing loneliness or isolatio n Never 04/25/2024 Comments Unknown Sex and Gender Information Value Date Recorded Sex Assigned at Not on file Legal Sex Female 4:17 AM [employer] Gender Identity Female 07/30/2019 11:16 AM CDT Sexual Orientation Straight 07/30/2019 11 :16 AM CDT Last Filed Vital Signs Vital Sign Reading Time Taken Comments Blood Pressure 143/82 03/20/2024 1:32 PM [employer] Pulse 88 03/20/2024 1:32 PM [employer] Temperature 36.5 C (97.7 F) 11/28/2023 12:00 PM CDT Respiratory Rate 16 11/28/2023 12:00 PM CDT Oxygen Saturation 99% 12/06/2023 10:03 AM CDT Inhaled Oxygen Concentration - - Weight 81.7 kg (180 lb 3.2 oz) 03/20/2024 1:32 P M [employer] Height 172.7 cm (5' 8 ) 03/20/2024 1:32 PM [employer] Body Mass Index 27.4 03/20/2024 1:32 PM [employer] Plan of Treatment Not on file Procedures Procedure Name Priority Date/Time Associated Diagnosis Comments T + B-LYMPHOCYTE DIFFERENTIAL Routine 04/12/2024 11:20 AM [employer] High risk medication use Immunosuppression due to drug therapy Multiple sclerosis (HCC) COMPREHENSIVE METABOLIC PANEL Routine 04/12/2024 11:20 AM [employer] High risk medication use Immunosuppression due to drug therapy Multiple sclerosis (HCC) IGM Routine 04/12/2024 11:20 AM [employer] High risk medication use Immunosuppression due to drug therapy Multiple sclerosis (HCC) IGG Routine 04/12/2024 11:20 AM [employer] High risk medication use Immunosuppression due to drug therapy Multiple sclerosis (HCC) IGA Routine 04/12/2024 11:20 AM [employer] High risk medication use Immunosuppression due to drug therapy Multiple sclerosis (HCC) NEURO MR OUTSIDE REFERENCE Routine 04/10/2024 6:52 PM [employer] NEURO MR OUTSIDE REFERENCE Routine 03/29/2024 5:21 PM [employer] SCREENING MAMMOGRAM BILATERAL W [place] Schedule Routine, Read Routine (OP Routine) 10/17/2019 9:34 AM CDT Encounter for screening mammogram for malignant neoplasm of breast HEPATITIS C ANTIBODY Routine Gen Lab 07/22/2016 3:40 PM CDT from Last 3 Months or Most Recently Relevant to Health Maintenance Results * (ABNORMAL) T + B-Lymphocyte Differential (04/12/2024 11:20 AM [employer]) Abs.CD19+ Lymphs 6(L) 12 - 645 /uL [...] - 01 Blood 04/12/2024 11:2 0 AM [employer] 04/12/2024 Narrative [facility] - 04/16/2024 3:07 PM [employer] Performed at: [address] [place], [place] [id number] Survey Methodologist: Jeffrey Mojica PhD, Phone: [phone] Jessica Velázquez MD LAB BLOOD ORDERABLES Final Resul t Performing Organization Address [facility] de Phone Number [facility] - * IgA (04/12/2024 11:20 AM [employer]) Immunoglobulin A, Qn, Serum 167 87 - 352 mg/dL [facility] - 01 Blood 04/12/2024 11:2 0 AM [employer] 04/12/2024 Narrative [facility] - 04/14/2024 5:07 AM [employer] Performed at: [address] [place] [id number] Survey Methodologist: Jeffrey Mojica PhD, Phone: [phone] Jessica Velázquez MD LAB BLOOD ORDERABLES Final Resul t Performing Organization Address [facility] de Phone Number [facility] - * IgM (04/12/2024 11:20 AM [employer]) Pathologist [facility] Immunoglobulin M, Qn, Serum 31 26 - 217 mg/dL [facility] - Blood 04/12/2024 11:2 0 AM [employer] 04/12/2024 Narrative [facility] - 04/14/2024 5:07 AM [employer] Performed at: [facility] [id number] Survey Methodologist: Jeffrey Mojica PhD, Phone: [phone] us Jessica Velázquez MD LAB BLOOD ORDERABLES Final Resul t Performing Organization Address [facility] Co de Phone Number [facility] * IgG (04/12/2024 11:20 AM [employer]) Pathologist [facility] Immunoglobulin G, Qn, Serum 836 586 - 1,602 mg/dL [facility] - 01 Blood 04/12/2024 11:2 0 AM [employer] 04/12/2024 Narrative [facility] - 04/14/2024 5:07 AM [employer] Performed at: [address] [place] [id number] Survey Methodologist: Jeffrey Mojica PhD, Phone: [phone] us Jessica Velázquez MD LAB BLOOD ORDERABLES Final Resul t Performing Organization Address City/[facility]/ZIP Co de Phone Number [facility] * (ABNORMAL) Comprehensive metabolic panel (04/12/2024 11:20 AM [employer]) Pathologist [facility] Glucose 83 70 - 99 mg/dL [facility] [...] - 01 Blood 04/12/2024 11:2 0 AM [employer] 04/12/2024 Narrative [facility] - 04/14/2024 12:06 AM [employer] Performed at: [facility] [id number] Survey Methodologist: Jeffrey Mojica PhD, Phone: [phone] us Jessica Velázquez MD LAB BLOOD ORDERABLES Final Resul t Performing Organization Address City/[facility] Co de Phone Number [facility] - 01 * Neuro MR Outside Reference (04/10/2024 6:52 PM [employer]) Impressions [facility] - 04/10/2024 6:52 PM [employer] These images are for Reference purposes only and have not been reviewed by [facility] Radiology. There will be no report generated by a [facility] Radiologist. Narrative [facility] - 04/10/2024 6:52 PM [employer] EXAMINATION: Images For Reference Purposes Only us Jessica Velázquez MD IMG MRI PROCEDURES Final Result Performing Organization Address [facility] Co de Phone Number [facility] * Neuro MR Outside Reference (03/29/2024 5:21 PM [employer]) Impressions [facility] - 03/29/2024 5:21 PM [employer] These images are for Reference purposes only and have not been reviewed by [facility] Radiology. There will be no report generated by a [facility] Radiologist. Narrative [facility] - 03/29/2024 5:21 PM [employer] EXAMINATION: Images For Reference Purposes Only us Jessica Velázquez MD IMG MRI PROCEDURES Final Result [facility] * Screening Mammogram Bilateral [place] (10/17/2019 9:34 AM CDT) Anatomical Region Laterality Modality Breast Bilateral Mammography Narrative 10/22/2019 5:33 PM CDT Mammogram Technique: Bilateral Digital Breast Tomosynthesis, Bilateral C-view 2D Screening mammogram. Views obtained: bilateral craniocaudal and bilateral mediolateral oblique. Computer Aided Detection was performed. Mammogram Findings: The present examination has been compared to prior imaging studies performed at [facility] on 05/03/2017, 05/19/2017 and 07/25/2018. There [...] compared to prior imaging studies performed at [facility] on 05/03/2017, 05/19/2017 and 07/25/2018. There [...] RNA Detection and Quantitation by Real-Time Reverse Exam Proctor-PCR (RT-PCR). Current interpretive data was last revised on 2016. Blood specimen (specimen) 07/22/2016 3:40 PM CDT 07/22/2016 3:40 PM CDT us Jessica Velázquez MD LAB MICROBIOLOGY - GENERAL ORDER CASEY Edited Result - Final [facility] Department [place] [address] from Last 3 Months or Most Recently Relevant to Health Maintenance Insurance [facility] PL[facility] PLUS Care Teams Fishing Tackle Repairer Relationship Specialty Start Date End Date Angelo Mitchell MD [address] [facility] [address] [place] [address] PCP - General 07/15/16
[2024-05-26 01:00] VITALS: BP 128/90; PULSE 69; RESP 20; O2SAT 98
--- NOTE | 2024-05-26 01:29 | ECG_ITS ---
Test Date: 2024-05-26 02:08:27 Measurements Intervals [place] Rate: 72 P: 46 NH: 160 QRS: 53 QRSD: 91 T: 52 QT: 390 QTc: 428 Interpretive Statements SINUS RHYTHM No previous ECG available for comparison Electronically Signed On 05-27-2024 13:54:59 CDT by Jamison Huang D.O
[2024-05-26 01:51] LABS: BEDSIDEPREGUCG Negative (Negative)
--- NOTE | 2024-05-26 02:06 | ED.GENADULT ---
HPI - General Adult General Chief complaint: Unspecified Stated complaint: severe john leg pain Time Seen by Provider: 05/25/24 23:04 History of Present Illness HPI narrative: This is a 48-year-old female presenting with total body pain. Blood patient was at work she developed pain all over her body but worse in her legs. She then came to the hospital for evaluation. That time she decided she did not want to stay to a long wait and then went home. When she got home pain seems. She had called ambulance to come back to the hospital. When she came back to the hospital the pain she had was agitated, she was shouting and other visitors in our waiting room. Her sister was with her and says she has never seen her this in past. She then fell asleep. When she woke up she had no recollection of any of the agitated behavior and is currently asymptomatic. Related Data Home Medications ?Medication ?Instructions ?Recorded ?Confirmed ?Last Taken ?Type lorazepam 2 mg tablet 2 mg PO DAILY PRN Anxiety 01/08/20 02/08/24 05/04/21 05:00 History multivitamin 1 tablet PO DAILY 04/24/21 02/08/24 04/30/21 History amantadine HCl 100 mg capsule 100 mg PO BID 11/22/22 02/08/24 Unknown History Allergies Allergy/AdvReac Type Severity Reaction Status Date / Time No Known Allergies Allergy Verified 05/25/24 13:45 [facility] Past Medical History Medical History Degenerative joint disease of knee Effusion, left knee History of HPV infection Left carpal tunnel syndrome Left knee DJD Left knee injury Left knee pain Multiple sclerosis Dx in 2015 per patient questionnaire Osteoarthritis of right knee Other fatigue Right carpal tunnel syndrome Right knee DJD Seasonal allergies Vitamin D deficiency, unspecified Family History Family History Father Hypertension Other Arthritis Cerebrovascular accident Diabetes mellitus FH: kidney cancer Family history of arthritis Family history of cardiovascular disease Heart disease Social History Social History (Updated 02/08/24 @ 08:11 by Kishore Ibanez MA) Smoking status: Never smoker Second hand tobacco smoke exposure: No Alcohol intake: current Drinks per week: 5 Alcohol use details: social Substance use: current Substance use type: marijuana Other substance usage details: occasionally Do You Feel Safe in your Home?: Yes Lack of Transportation: No Lack of Food: Never True Current Housing: I Have Housing Concerned About Future Housing: No Difficulty Paying Gas/Electric Bills: No Difficulty Paying for Meds: No Currently Unemployed: No Education: Master's Degree or Higher Difficulty w/ Childcare or Family Care: No Living arrangements: with family Additional living arrangements comments: SONS Occupation/Education: occupation Gender identity (if verbalized by the patient): Female Sexual Orientation (if Verbalized by the Patient): Straight or Heterosexual Spiritual care concerns: No Exam Narrative: APPEARANCE: No apparent distress. Head: atraumatic. EYES: EOMI, equal and reactive NOSE: Atraumatic NECK: Trachea midline RESPIRATORY: No increased rate of breathing CTAB CARDIOVASCULAR: RRR, no peripheral edema ABDOMINAL: Non-distended soft nontender no guarding rebound MUSCULOSKELETAl: No obvious deformities NEURO: Alert. Cranial nerves 2-12 grossly intact. Sensation light touch, motor function cerebellar function intact for 3/4 extremities. Patient has right footdrop and some weakness in her right hip which is chronic from her MS. SKIN:: Warm, dry. Normal color PSYCHIATRIC: Normal affect Course Vital Signs Vital signs: Vital Signs Pulse Rate 80 05/25/24 16:12 Respiratory Rate 22 H 05/25/24 16:12 Blood Pressure 132/96 H 05/25/24 16:12 Pulse Oximetry 95 05/25/24 16:12 Oxygen Delivery Room Air 05/25/24 16:12 Pulse Rate 80 05/25/24 16:12 Respiratory Rate 15 05/25/24 23:46 Blood Pressure 132/96 H 05/25/24 16:12 Pulse Oximetry 95 05/25/24 16:12 Oxygen Delivery Room Air 05/25/24 16:12 Medical Decision Making MDM Narrative Medical decision making narrative: -Course: 48-year-old female w/ MS presenting after total body pain and agitated behavior, associated with lesion. At the time of my interview patient is A&O x3, she has no complaints. She is not remember the agitated event in our lobby when she was screaming at people. Her CT is normal. Her laboratory studies are normal. Discussed admission versus discharge and she has close follow-up with her own neurologist who she has a good relationship with. She is comfortable following up with them early next week. Patient will be discharged with return precautions. -DDX includes but is not limited to: MS flare, fugue state, psychotic break, delerium from infection, atypical seizure Vital Signs Vital Signs: Vital Signs Pulse Rate 80 05/25/24 16:12 Respiratory Rate 22 H 05/25/24 16:12 Blood Pressure 132/96 H 05/25/24 16:12 Pulse Oximetry 95 05/25/24 16:12 Oxygen Delivery Room Air 05/25/24 16:12 Pulse Rate 80 05/25/24 16:12 Respiratory Rate 15 05/25/24 23:46 Blood Pressure 132/96 H 05/25/24 16:12 Pulse Oximetry 95 05/25/24 16:12 Oxygen Delivery Room Air 05/25/24 16:12 Lab Data Labs: Lab Results 05/26/24 05/26/24 05/26/24 Range/Units 01:50 01:52 02:00 Urine Color Pending Urine Appearance Pending Urine pH Pending Ur Specific [place] Pending Urine Protein Pending Urine Glucose (UA) Pending Urine Ketones Pending Ur Blood (Man) Pending Urine Nitrate Pending Urine Bilirubin Pending Urine Urobilinogen Pending Leukocyte Esterase Rfl Pending POC Urine HCG, Qual Negative (Negative) Urine Opiates Screen Pending Urine Methadone Screen Pending Ur Barbiturates Screen Pending Ur Phencyclidine Scrn Pending Ur Amphetamine Screen Pending U Benzodiazepines Scrn Pending Urine Cocaine Screen Pending U Cannabinoids Screen Pending Ethyl Alcohol Pending Discharge Plan Discharge Clinical Impression: Complaints of total body pain, Amnesia Patient Disposition: Home, Self-Care Condition: Stable Instructions: Antibiotic Form, Multiple Sclerosis (DC) Additional Instructions: Please follow-up with your neurologist for further management. If you develop any new or worsening symptoms return to the ED evaluation. Patient Language: Lithuanian Prescriptions: No Action clobetasol 0.05 % cream 1 applic topical .2x/w Qty: 60 2RF lorazepam 2 mg tablet 2 mg PO DAILY PRN (Reason: Anxiety) amantadine HCl 100 mg capsule 100 mg PO BID multivitamin Tablet 1 tablet PO DAILY Follow-up/Referrals: Ramón Wilson MD [Primary Care Provider] -
[2024-05-26 02:11] LABS: Add Urine Microscopic? YES; Appearance Urine Cloudy (Clear); Bacteria Urine 4+ /hpf; Bilirubin Urine Negative (Negative); Blood Urine Negative (Negative); Budding Yeast Urine Present /hpf; Color Urine Yellow (Yellow); Glucose Urine UA Negative (Negative); Ketones Urine 3+ mg/dL (Negative); Leukocyte Esterase Ur Negative LEU/UL (Negative); Mucus Urine Present /lpf; Need Manual Microscopic Reviewed; Nitrate Urine Negative (Negative); Non Pathogenic Casts 0-2; Protein Urine Negative (Negative); RBC Urine >100 /hpf (0-2); Specific Grav Ur 1.019 (1.001-1.035); Squamous Epithelial Cell Urine Occasional /hpf (Few); Urobilinogen Urine 0.2 mg/dL (<2.0); WBC Urine 0-5 /hpf (0-3); pH Urine 5.5 (5.0-9.0)
[2024-05-26 02:15] LABS: Amphetamine Screen Urine Negative (Negative); Barbiturate Screen Urine Negative (Negative); Benzodiazepines Screen Urine Negative (Negative); Cannabinoid Screen Urine Positive (Negative); Cocaine Screen Urine Negative (Negative); Methadone Screen Urine Negative (Negative); Opiate Screen Urine Negative (Negative); Phencyclidine Screen Urine Negative (Negative)
[2024-05-26 02:17] LABS: Ethanol < 10 mg/dL (<10)
[2024-05-26 04:10] VITALS: BP 133/84; PULSE 74; RESP 18; O2SAT 100
[2024-05-26 04:24] VITALS: BP 133/84; PULSE 74; RESP 18; O2SAT 100
== END 2024-05-26 04:26 | disposition home or self-care (01) ==
PROVIDERS: Emergency Provider Emergency Medicine; PCP Obstetrics & Gynecology
DX: R52 Pain, unspecified (principal); R41.3 Other amnesia; G35 Multiple sclerosis; E55.9 Vitamin D deficiency, unspecified; M17.0 Bilateral primary osteoarthritis of knee
CPT/HCPCS: 36415; 70450; 71045; 80307; 81001; 81025; 82077; 93005; 99284

== ENCOUNTER 2024-10-08 13:34 | Outpatient (CLI) | payer OTHER, SELFPAY ==
--- NOTE | ~2024-10-08 | US_ITS ---
EXAMINATION:US venous doppler LE BI INDICATION:Leg edema TECHNIQUE: Multiple grayscale, color flow and Doppler images of the right and left lower extremity de ep venous systems were obtained and reviewed. COMPARISON:No prior studies for comparison. FINDINGS: The common femoral, superficial femoral and popliteal veins demonstrate normal respiratory variation, augmentation and compressibility. Color flow is also seen within the posterior tibial, pe roneal, greater saphenous and profunda veins. IMPRESSION: 1: No lower extremity deep venous thrombosis. Reviewed, dictated and finalized at location B.
== END 2024-10-08 13:35 | disposition home or self-care (01) ==
LOC: MICIMG 13:35
PROVIDERS: PCP Internal Medicine; Visit Provider Internal Medicine
DX: R60.9 Edema, unspecified (principal)
CPT/HCPCS: 93970